=== PATIENT | female | born 1995 ===

== ENCOUNTER 2016-10-29 14:21 | Emergency (ER) | payer MEDICAID, OTHER ==
[2016-10-29 14:33] VITALS: TEMP 98.2
[2016-10-29] MEDS ORDERED: NS 1,000 ML IV ONE (15:55)
[2016-10-29] MEDS ORDERED: KETOROLAC 30 MG/1 ML SDV IVP ONE (15:55)
--- NOTE | 2016-10-29 16:00 | EDPHY ---
H & P Time Seen by Provider: 10/29/16 15:05 HPI/ROS: CHIEF COMPLAINT: left-sided chest pain HISTORY OF PRESENT ILLNESS: Patient is a 21-year-old female who presents emergency department with ongoing left-sided chest pain times 3 days. Pain is constant. It is in left lateral aspect of her ribs. It is not worse with touch. She has mild shortness of breath. No cough or fever. No leg pain or swelling. No recent travel. Patient occasionally smokes cigarettes and marijuana. She is not on hormone replacement therapy. REVIEW OF SYSTEMS: My complete review of systems is negative except as mentioned in the HPI. Past Medical/Surgical History: Negative Past surgical history: Negative Social history: The patient occasionally smokes cigarettes and uses THC. Smoking Status: Current some day smoker Physical Exam: Vitals noted GENERAL: Well-appearing, in no acute distress, alert. HEENT: Eyes normal to inspection, normal pharynx, no signs of dehydration. NECK: No thyromegaly, no lymphadenopathy, supple. RESPIRATORY: Clear to auscultation bilaterally, no rales, rhonchi or wheezing. CVS: Regular rate and rhythm, no rubs, murmurs, or gallops. Chest wall: No tenderness palpation. No rash ABDOMEN: Soft, nontender, nondistended, no organomegaly. BACK: Normal to inspection, no CVA tenderness. SKIN: Normal color, no rash, warm, dry. No pallor. EXTREMITIES: No pedal edema, no calf tenderness, no Homans sign or cords, no joint swelling. NEURO/PSYCH: Alert and oriented x3, normal mood and affect, normal motor sensory exam. Constitutional: Initial Vital Signs Temperature (C) 36.8 C 10/29/16 14:30 Heart Rate 93 10/29/16 14:30 Respiratory Rate 18 10/29/16 14:30 Blood Pressure 114/77 10/29/16 14:30 O2 Sat (%) 98 10/29/16 14:30 O2 Delivery Mode Room Air Allergies/Adverse Reactions: No Known Allergies Allergy (Unverified 10/29/16 14:30) Home Medications: Medication Instructions Recorded Hydrocodone/APAP 5/325 [[place] 1 - 2 tab PO Q4 #9 tab 10/29/16 5/325 (RX)] Medical Decision Making - Diagnostics EKG Interpretation: EKG shows normal sinus rhythm, normal rate, normal axis, normal intervals. There are no ST or T-wave abnormalities. EKG is normal as interpreted by me. ED Course/Re-evaluation: In the emergency department an IV was placed. Laboratory studies, EKG and chest x-ray were ordered. The patient was given Toradol 30 mg IV for pain control. I rechecked the patient on numerous occasions. I updated her regarding her laboratory findings. Patient had elevated D-dimer. Because of this is CT angiogram was ordered. I discussed this with the patient and answered all her questions. CT angio: Please refer the dictated report by Dr. Tushar Boone. No acute disease noted. No pulmonary embolus. I discussed the result with the patient. She was lying comfortably in the room using her phone. She had no signs of respiratory distress. I gave patient warnings prior to leaving. She will return with worsening symptoms. Differential Diagnosis: My differential includes but not limited to ACS, acute [place], pulmonary embolus, pneumonia, pneumothorax, mass, malignancy, GERD, reflux - Data Points Laboratory Results: Laboratory Results 10/29/16 15:45 10/29/16 15:45 10/29/16 15:45 WBC 7.99 10^3/uL (3.80-9.50) RBC 4.72 10^6/uL (4.18-5.33) Hgb 12.3 L g/dL (12.6-16.3) Hct 38.2 % (38.0-47.0) MCV 80.9 L fL (81.5-99.8) MCH 26.1 L pg (27.9-34.1) MCHC 32.2 L g/dL (32.4-36.7) RDW 16.6 H % (11.5-15.2) Plt Count 364 10^3/uL (150-400) MPV 10.1 fL (8.7-11.7) Neut % (Auto) 74.9 H % (39.3-74.2) Lymph % (Auto) 16.0 % (15.0-45.0) Wallace % (Auto) 6.5 % (4.5-13.0) Eos % (Auto) 1.9 % (0.6-7.6) Baso % (Auto) 0.4 % (0.3-1.7) Nucleat RBC Rel Count 0.0 % (0.0-0.2) Absolute Neuts (auto) 5.99 10^3/uL (1.70-6.50) Absolute Lymphs (auto) 1.28 10^3/uL (1.00-3.00) Absolute Monos (auto) 0.52 10^3/uL (0.30-0.80) Absolute Eos (auto) 0.15 10^3/uL (0.03-0.40) Absolute Basos (auto) 0.03 10^3/uL (0.02-0.10) Absolute Nucleated RBC 0.00 10^3/uL (0-0.01) Immature Gran % 0.3 % (0.0-1.1) Immature Gran # 0.02 10^3/uL (0.00-0.10) D-Dimer 0.76 H ug/mLFEU (0.00-0.50) Sodium 140 mEq/L (134-144) Potassium 4.1 mEq/L (3.5-5.2) Chloride 105 mEq/L (97-110) Carbon Dioxide 26 mEq/l (22-31) Anion Gap 9 mEq/L (8-16) BUN 7 mg/dL (7-23) Creatinine 0.6 mg/dL (0.6-1.0) Estimated GFR > 60 Glucose 100 mg/dL (70-100) Calcium 9.6 mg/dL (8.5-10.4) Beta HCG, Qual NEGATIVE Medications Given: Discontinued Medications Sodium Chloride (Ns) 1,000 mls @ 0 mls/hr IV ONCE ONE PRN Reason: Wide Open Stop: 10/29/16 15:56 Last Admin: 10/29/16 16:06 Dose: 1,000 mls Ketorolac Tromethamine (Toradol) 30 mg IVP EDNOW ONE Stop: 10/29/16 15:56 Last Admin: 10/29/16 16:23 Dose: 30 mg Departure - Departure Disposition: Home, Routine, Self-Care Clinical Impression: Chest pain Qualifiers: Chest pain type: other chest pain Qualifier Code: (R07.89) Other chest pain Condition: Good Instructions: Chest Pain (ED) Additional Instructions: Return with increasing pain, shortness of breath or any other concerns. Your CT scan was negative. Laboratory studies were normal. Referrals: Gino Walsh MD [Medical Doctor] - 5-7 days, call for appt. Prescriptions: Hydrocodone/APAP 5/325 [[place] 5/325 (RX)] 1 - 2 tab PO Q4 #9 tab
[2016-10-29 16:05] LABS: % IMMATURE GRANULYOCYTES 0.3 % (0.0-1.1); ABSOLUTE IMMATURE GRANULOCYTES 0.02 10^3/uL (0.00-0.10); ADD DIFF? NO; ADD MORPH? NO; ADD SCAN? NO; ATYPICAL LYMPHOCYTE FLAG 0 (0-99); FRAGMENT RBC FLAG 20 (0-99); HEMATOCRIT 38.2 % (38.0-47.0); HEMOGLOBIN 12.3 g/dL (12.6-16.3); LEFT SHIFT FLG 0 (0-99); LIPEMIA HEMOLYSIS FLAG 80 (0-99); MEAN CELL HEMOGLOBIN 26.1 pg (27.9-34.1); MEAN CELL HEMOGLOBIN CONCENTR. 32.2 g/dL (32.4-36.7); MEAN CELL VOLUME 80.9 fL (81.5-99.8); MEAN PLATELET VOLUME 10.1 fL (8.7-11.7); PLATELET CLUMPS FLAG 10 (0-99); PLATELET COUNT 364 10^3/uL (150-400); RED BLOOD CELL COUNT 4.72 10^6/uL (4.18-5.33); RED CELL DISTRIBUTION WIDTH 16.6 % (11.5-15.2)
[2016-10-29 16:12] LABS: ANION GAP 9 mEq/L (8-16); CALCIUM 9.6 mg/dL (8.5-10.4); CARBON DIOXIDE 26 mEq/l (22-31); CHLORIDE 105 mEq/L (97-110); CREATININE 0.6 mg/dL (0.6-1.0); GLOMERULAR FILTRATION RATE > 60; GLUCOSE 100 mg/dL (70-100); POTASSIUM 4.1 mEq/L (3.5-5.2); SODIUM 140 mEq/L (134-144)
--- NOTE | 2016-10-29 16:18 | CPEKG ---
Heart Rate: 89 RR Interval: 674 P-R Interval: 128 QRSD Interval: 82 QT Interval: 388 QTC Interval: 473 P [place]: 77 QRS [place]: 82 T Wave [place]: 44 EKG Severity - NORMAL ECG - EKG Impression: SINUS RHYTHM Electronically Signed By: Randa Schultz 29-Oct-2016 20:29:23
[2016-10-29] MEDS ORDERED: IOPAMIDOL (ISOVUE-300) 50 ML VIAL IV ONE ×2 (17:09)
[2016-10-29] MEDS ORDERED: IOPAMIDOL (ISOVUE 370) 100 ML BTL IV ONE (17:11)
[2016-10-29 17:26] VITALS: RESP 16; O2SAT 96
--- NOTE | 2016-10-29 17:57 | CT ---
CT Chest Pulmonary Angiogram With Contrast Enhancement and Multiplanar Reconstructions 2016 at 1724 Hours History: Left-sided chest pain, elevated D-dimer. Comparison: None. Technique: 1.25-mm axial multidetector helical CT angiogram imaging was performed through the chest w hile 80 mL [id number]-[id number] were injected intravenously without complication. The images were then transfe rred to an independent workstation where multiplanar and three-dimensional reconstructions were perfo rmed by the interpreting physician and reviewed at multiple windows. Dose reduction techniques were u tilized. CT Pulmonary Angiogram Findings: No CT evidence of definite pulmonary thromboemboli. No aortic aneur ysm or dissection. Heart is normal in size. CT Chest Findings: Lung apices not imaged. Remaining lungs demonstrate no pneumonia, pleural effusion , or suspicious pulmonary nodules. No significant adenopathy. Optometry Doctor view demonstrates no evidence of a pneumothorax. No destructive osseous lesions. Impressions: 1. No definite pulmonary thromboemboli. 2. No acute pulmonary disease. Findings and recommendations discussed with emergency department physician, Dr. Schultz at 1740 hours today. Final report concurs with initial preliminary interpretation.
[2016-10-29 18:00] LABS: COLOR YELLOW; LEUKOCYTE ESTERASE,URINE NEGATIVE (NEGATIVE); NITRITE,URINE NEGATIVE (NEGATIVE)
[2016-10-29 18:04] LABS: MUCUS TRACE /lpf (NONE-1+); YEAST PRESENT /hpf (NONE SEEN)
[2016-10-29 18:23] VITALS: BP 116/74; PULSE 81
== END 2016-10-29 18:23 | disposition home or self-care (01) ==
DX: R07.89 Other chest pain (principal); F17.200 Nicotine dependence, unspecified, uncomplicated
CPT/HCPCS: 96374; J1885; Q9967